=== PATIENT | female | born 1995 | race Caucasian/White ===

== ENCOUNTER 2019-12-14 12:29 | Emergency (ER) | payer BC ==
[~2019-12-14] VITALS: Ht 162.6 cm; Wt 68.2 kg
[~2019-12-14 12:29] MED LIST: DESYREL 100MG100 MG PO; NEXIUM 40MG40 MG PO; PHENERGAN 25 TA25 MG PO; RITALIN 5MG5 MG/TAB PO; TILIA FE1 TAB PO
[2019-12-14 12:35] VITALS: TEMP 98.7
[2019-12-14] MEDS ORDERED: ADDERALL10 MG PO (12:41)
[2019-12-14] MEDS ORDERED: FAMVIR250 MG PO (12:41)
[2019-12-14] MEDS ORDERED: ABILIFY5 MG PO (12:41)
[2019-12-14] MEDS ORDERED: FLUOXETINE (12:43)
[2019-12-14 13:42] LABS: BASO # 0.1 (0.0-0.2); BASO % 0.6 % (0.0-2.0); EOS # 0.2 (0.0-0.7); GRAN # 7.7 (1.4-6.5); GRAN % 74.3 % (42.2-75.2); HEMATOCRIT 44.7 % (37.0-47.0); HEMOGLOBIN 15.5 g/dl (12.5-16.0); LYMPH # 1.8 (1.2-3.4); LYMPH % 17.2 % (20.0-51.0); MEAN CELL VOLUME 84 fl (80.0-100.0); MEAN CORPUSCULAR HEMOGLOBIN 29 pg (27.0-31.0); MEAN CORPUSCULAR HGB CONC 35 g/dl (33.0-37.0); MEAN PLATELET VOLUME 8.8 fl (7.4-10.4); MONO # 0.6 (0.1-0.6); MONO % 5.6 % (1.7-9.3); PLATELET COUNT 353 K/mm3 (130-400); RED BLOOD COUNT 5.31 M/mm3 (4.10-5.30); REDCELL DISTRIBUTION WIDTH-CV 13.5 % (11.5-14.5)
[2019-12-14 13:52] LABS: ALBUMIN 4.4 gm/dL (3.5-5.0); BILIRUBIN,TOTAL 1.7 mg/dL (0.0-1.0); CALCIUM 9.3 mg/dL (8.4-10.2); CREATININE, serum 0.81 (0.52-1.25); POTASSIUM 4.3 mmol/L (3.4-5.0)
[2019-12-14] MEDS ORDERED: ANTI-DIARRHEAL2 MG PO (14:42)
[2019-12-14 15:00] VITALS: BP 109/75; PULSE 76
== END 2019-12-14 15:00 | disposition home or self-care (01) ==
LOC: COL.ER 12:29
PROVIDERS: Physician Assistant
DX: A08.4 Viral intestinal infection, unspecified (principal); F41.9 Anxiety disorder, unspecified; F32.9 Major depressive disorder, single episode, unspecified; Z20.828 Contact with and (suspected) exposure to other viral communicable diseases; Z88.1 Allergy status to other antibiotic agents; Z90.49 Acquired absence of other specified parts of digestive tract
CPT/HCPCS: J2405; J7030